=== PATIENT | male | born 1980 | race African-American/Black ===

== ENCOUNTER 2016-10-16 20:22 | Emergency (ER) | payer SELFPAY ==
[~2016-10-16] VITALS: Ht 177.8 cm; Wt 102.1 kg
[2016-10-16 21:15] VITALS: BP 125/81
--- NOTE | 2016-10-16 21:44 | PHYS DOC ---
Past Medical History Past Medical History: No Pertinent History Past Surgical History: No Surgical History Alcohol Use: Occasionally Drug Use: None Adult General Chief Complaint Chief Complaint: KNEE INJURY [facility] HPI Patient is a 36 year old female presents emergency department stating he was playing kickball with his nephew wheezing heard a pop in his left knee. Patient states that he has had left knee problems in the past where it 16 he had torn some ligaments. Patient states he has never been seen by an orthopedic. He states that second time he injured it was when he was in [facility] approximately 2- 3 years ago. Patient states that he does not have any numbness or tingling down to the lower extremity. He does state he has increased pain with trying to completely straighten the knee out. He states the pain is located at the posterior part of the knee. There does not appear to be any swelling or discoloration noted. Patient denies taking anything for pain or discomfort. Review of Systems Review of Systems Constitutional: Denies fever or chills [] Eyes: Denies change in visual acuity, redness, or eye pain [] HENT: Denies nasal congestion or sore throat [] Respiratory: Denies cough or shortness of breath [] Cardiovascular: No additional information not addressed in HPI [] GI: Denies abdominal pain, nausea, vomiting, bloody stools or diarrhea [] : Denies dysuria or hematuria [] Musculoskeletal: Denies back pain. Left knee pain Integument: Denies rash or skin lesions [] Neurologic: Denies headache, focal weakness or sensory changes [] Endocrine: Denies polyuria or polydipsia [] Allergies Allergies Allergies Coded Allergies Type Severity Reaction Last Updated Verified No Known Drug Allergies 10/16/16 No Physical Exam Physical Exam Constitutional: Well developed, well nourished, no acute distress, non-toxic appearance. [] HENT: Normocephalic, atraumatic, bilateral external ears normal, oropharynx moist, no oral exudates, nose normal. [] Eyes: PERRLA, EOMI, conjunctiva normal, no discharge. [] Neck: Normal range of motion, no tenderness, supple, no stridor. [] Cardiovascular:Heart rate regular rhythm Lungs & Thorax: No respiratory distress noted Skin: Warm, dry, no erythema, no rash. [] Back: No tenderness Extremities: Posterior left knee tenderness, no cyanosis, no clubbing, ROM intact, no edema. Patient with a negative Karina, negative Gonzalez negative valgus. Patient with tenderness noted in the posterior part of the knee. No discoloration no swelling noted. Neurologic: Alert and oriented X 3, normal motor function, normal sensory function, no focal deficits noted. [] Psychologic: Affect normal, judgement normal, mood normal. [] Current Patient Data Vital Signs Vital Signs Date Time Temp Pulse Resp B/P (MAP) Pulse Ox O2 Delivery O2 Flow Rate FiO2 10/16/16 21:15 98.0 112 18 95 Room Air 98.0 EKG EKG [] Radiology/Procedures Radiology/Procedures [] Course & Med Decision Making Course & Med Decision Making Pertinent Labs and Imaging studies reviewed. (See chart for details) X-rays are negative for any bony abnormalities. Patient will be encouraged to follow-up with orthopedic. Recommended knee immobilizer which was placed on the patient prior to discharge. Ibuprofen 800 mg every 8 hours with food stop taking few develop an upset stomach. Signs and symptoms to return back to emergency department as been provided. Patient agrees with discharge instructions treatment regimens and follow-up recommendations. [] Dragon Disclaimer Dragon Disclaimer This electronic medical record was generated, in whole or in part, using a voice recognition dictation system. Departure Departure Impression: Primary Impression: Left knee pain Disposition: 01 HOME, SELF-CARE Condition: STABLE Referrals: EED RESENDEZ MD Patient Instructions: Knee Immobilizer-Brief, Knee Pain, [id number] Additional Instructions: Activity as tolerated. With a knee immobilizer today follow-up with orthopedic. Ibuprofen 800 mg every 8 hours with food stop taking few develop an upset stomach. Ice packs on 20 minutes off 20 minutes several times a day. Follow-up with orthopedic within the next week. Return back to emergency prior signs symptoms of become worse. DEVYN JESUS CABLE WIRER Oct 16, 2016 21:44
[2016-10-16] MEDS ORDERED: IBUPROFEN 800 MG TABLET. PO ONE (22:00)
--- NOTE | 2016-10-17 08:49 | RAD ---
KNEE 4 VIEWS LEFT Clinical Indication: left knee pain after playing kickball Comparison: None. Findings: AP, oblique, lateral, and sunrise views. There is no acute fracture or dislocation. The tricompartmental joint spaces are maintained. The patella is in anatomic position. There is no soft tissue abnormality. There is no joint effusion. IMPRESSION: No acute bone abnormality.
== END 2016-10-16 22:04 | disposition home or self-care (01) ==
LOC: ER 20:22
DX: M25.562 Pain in left knee (principal); X50.9XXA Other and unspecified overexertion or strenuous movements or postures, initial encounter; Y93.6A Activity, physical games generally associated with school recess, summer camp and children; Y99.8 Other external cause status; Y92.89 Other specified places as the place of occurrence of the external cause
CPT/HCPCS: 29505; 73564; 99284-25